=== PATIENT | female | born 1985 | race Hispanic/Latino ===

== ENCOUNTER 2021-02-15 06:23 | Day surgery (SDC) | payer BC ==
[2021-02-11 16:56] LABS: BASOPHILS % (AUTO) 0.3 % (0.0-5.0); EOSINOPHILS % (AUTO) 2.2 % (0.0-8.0); HEMATOCRIT 39.9 % (36-48); MEAN CORPUSCULAR HEMOGLOBIN 31.1 pg (27.0-33.0); MEAN CORPUSCULAR HGB CONC 33.1 g/dL (32.0-36.0); MEAN CORPUSCULAR VOLUME 94.1 fL (79-99); MONOCYTES % (AUTO) 6.6 % (3.0-13.0); NEUTROPHILS % (AUTO) 41.7 % (40.0-77.0); PLATELET COUNT (AUTO) 292 K/uL (130-400); RED BLOOD CELL COUNT(AUTO) 4.24 MIL/uL (4.00-5.50); RED CELL DISTRIBUTION WIDTH 13.2 % (11.0-15.5)
[2021-02-11 17:02] LABS: CREATININE 0.9 mg/dL (0.5-1.5); POTASSIUM 4.6 mmol/L (3.5-5.1)
[2021-02-14 11:08] VITALS: BP 105/76
[2021-02-15] VITALS (16 sets, daily range): BP systolic 97–114; BP diastolic 52–70
[~2021-02-15] VITALS: Ht 162.6 cm; Wt 62.1 kg
[2021-02-15] MEDS: CEFAZOLIN SODIUM 1 GM VIAL IVP SCH ×2 (06:00→08:30)
[~2021-02-15 06:23] MED LIST: ASPI-1190 PO; MELA5CAP PO
[2021-02-15] MEDS ORDERED: BUPIVACAINE/EPI/PF 0.25% 30ML VIAL IJ ONE (07:21)
[2021-02-15] MEDS ORDERED: CEFAZOLIN SODIUM 1 GM VIAL ONE (07:21)
[2021-02-15] MEDS: LACTATED RINGERS 1000ML 1,000 ML IV SCH ×3 (07:22→10:40)
[2021-02-15] MEDS ORDERED: ONDANSETRON 4MG INJ ONE (08:14)
[2021-02-15] MEDS ORDERED: NEOSTIGMINE 5MG/5ML SYR IV ONE (08:14)
[2021-02-15] MEDS ORDERED: LIDOCAINE PF 100MG/5ML (2%) SYRINGE 5ML ONE (08:14)
[2021-02-15] MEDS ORDERED: MIDAZOLAM HCL 1 MG/ML 2ML VIAL ONE (08:14)
[2021-02-15] MEDS ORDERED: DEXAMETHASONE SOD PHOSPHATE 10MG/ML 1ML VIAL ONE (08:14)
[2021-02-15] MEDS ORDERED: ROCURONIUM 10MG/1ML SYR 10 MG/ML ML ONE (08:14)
[2021-02-15] MEDS ORDERED: FENTANYL CITRATE PF 50 MCG/1 ML 2ML VIAL ONE (08:14)
[2021-02-15] MEDS ORDERED: GLYCOPYRROLATE 1 MG/5 ML SYRINGE ONE (08:14)
[2021-02-15] MEDS ORDERED: PROPOFOL 10 MG/ML 20ML VIAL IV ONE (08:14)
[2021-02-15] MEDS ORDERED: SUCCINYLCHOLINE CHLORIDE 20 MG/ML 10 ML VIAL ONE (08:14)
[2021-02-15] MEDS ORDERED: ROPIVACAINE 0.5% 5MG/ML 30ML IJ ONE (09:45)
[2021-02-15] MEDS ORDERED: MEPERIDINE-PF 25 MG/ML SYG ONE ×2 (10:05→11:05)
== END 2021-02-15 12:25 | disposition home or self-care (01) ==
LOC: DAH 06:23
PROVIDERS: ATTEND Orthopaedic Surgery
DX: S83.511A Sprain of anterior cruciate ligament of right knee, initial encounter (principal); Z20.822 Contact with and (suspected) exposure to COVID-19; S83.271A Complex tear of lateral meniscus, current injury, right knee, initial encounter; M94.261 Chondromalacia, right knee; M25.361 Other instability, right knee; X58.XXXA Exposure to other specified factors, initial encounter; Y92.89 Other specified places as the place of occurrence of the external cause; Y93.89 Activity, other specified
CPT/HCPCS: 29881; 29888; 36415 ×2; 64447; 80048; 84703; 85025; 87635; A4215; A4221; A4222; A4223; A4649 ×4; A4663; A4930; A5120; A6223; A6260; C1713 ×4; C1776; C9803; J0330; J0690 ×2; J1100; J2001; J2175 ×2; J2250; J2405; J2704; J2710; J2795; J3010; J3490; J7120 ×2

== ENCOUNTER 2021-04-08 07:22 | Day surgery (SDC) | payer BC ==
[~2021-04-08] VITALS: Ht 162.6 cm; Wt 61.5 kg
[2021-04-08] VITALS (16 sets, daily range): BP systolic 93–128; BP diastolic 58–89
[~2021-04-08 07:22] MED LIST changes: -ASPI-1190 PO; +GLUC-268 PO; +MELA1TAB21 PO; -MELA5CAP PO
[2021-04-08 08:39] LABS: BASOPHILS % (AUTO) 0.7 % (0.0-5.0); EOSINOPHILS % (AUTO) 2.3 % (0.0-8.0); HEMATOCRIT 40.5 % (36-48); LYMPHOCYTES % (AUTO) 42.2 % (21.0-51.0); MEAN CORPUSCULAR HGB CONC 33.3 g/dL (32.0-36.0); MONOCYTES % (AUTO) 6.3 % (3.0-13.0); NEUTROPHILS % (AUTO) 48.1 % (40.0-77.0); PLATELET COUNT (AUTO) 294 K/uL (130-400); RED BLOOD CELL COUNT(AUTO) 4.22 MIL/uL (4.00-5.50); RED CELL DISTRIBUTION WIDTH 12.9 % (11.0-15.5); WHITE BLOOD COUNT (AUTO) 5.7 K/uL (4.8-10.8)
[2021-04-08 08:49] LABS: CREATININE 0.9 mg/dL (0.5-1.5); POTASSIUM 5.2 mmol/L (3.5-5.1)
[2021-04-08] MEDS ORDERED: LACTATED RINGERS 1000ML 1,000 ML IV ONE (10:08)
[2021-04-08] MEDS: CEFAZOLIN SODIUM 1 GM VIAL ONE ×2 (10:26→12:35)
[2021-04-08] MEDS ORDERED: SUCCINYLCHOLINE CHLORIDE 20 MG/ML 10 ML VIAL ONE (10:57)
[2021-04-08] MEDS ORDERED: LIDOCAINE PF 100MG/5ML (2%) SYRINGE 5ML ONE (10:57)
[2021-04-08] MEDS ORDERED: ONDANSETRON 4MG INJ ONE (10:58)
[2021-04-08] MEDS ORDERED: DEXAMETHASONE SOD PHOSPHATE 10MG/ML 1ML VIAL ONE (10:58)
[2021-04-08] MEDS ORDERED: PROPOFOL 10 MG/ML 20ML VIAL IV ONE (10:58)
[2021-04-08] MEDS ORDERED: NEOSTIGMINE 5MG/5ML SYR IV ONE (10:58)
[2021-04-08] MEDS ORDERED: MIDAZOLAM HCL 1 MG/ML 2ML VIAL ONE (10:58)
[2021-04-08] MEDS ORDERED: GLYCOPYRROLATE 1 MG/5 ML SYRINGE ONE (10:58)
[2021-04-08] MEDS ORDERED: FENTANYL CITRATE PF 50 MCG/1 ML 2ML VIAL ONE ×2 (10:59→12:49)
[2021-04-08] MEDS ORDERED: ROCURONIUM 10MG/1ML SYR 10 MG/ML ML ONE (10:59)
[2021-04-08] MEDS ORDERED: ROPIVACAINE 0.5% 5MG/ML 30ML IJ ONE ×2 (11:01→11:53)
[2021-04-08] MEDS ORDERED: BUPIVACAINE/PF 0.5% 30ML VIAL ONE (12:03)
[2021-04-08] MEDS ORDERED: MEPERIDINE-PF 25 MG/ML SYG ONE ×2 (13:54→14:07)
== END 2021-04-08 15:10 | disposition home or self-care (01) ==
LOC: DAH 07:22
PROVIDERS: ATTEND Orthopaedic Surgery
DX: M24.561 Contracture, right knee (principal); M65.861 Other synovitis and tenosynovitis, right lower leg; Z79.899 Other long term (current) drug therapy; Z20.822 Contact with and (suspected) exposure to COVID-19
CPT/HCPCS: 29876; 29884; 36415; 64447; 76942; 80048; 84703; 85025; 87635; A4215; A4221; A4222; A4223; A4606; A4649 ×3; A4663; A4930; A6223; J0330; J0690; J1040; J1100; J2001; J2175 ×2; J2250; J2405; J2704; J2710; J2795 ×2; J3010 ×2; J3490; J7030; J7120